=== PATIENT | male | born 1945 | race Caucasian/White ===

== ENCOUNTER 2017-01-29 08:19 | Day surgery (SDC) | payer OTHER, MEDICARE ==
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
[2017-01-29 08:51] VITALS: RESP 16
[2017-01-29] MEDS ORDERED: LR 1,000 ML IV ONE (08:59)
[2017-01-29] MEDS ORDERED: PROPOFOL/EMULSION 500 MG/50 ML BOTTLE IV ONE (09:33)
--- NOTE | 2017-01-29 09:33 | PDGENHP ---
History & Physical Chief Complaint: hx of polyps Relevant Physical Exam: GEN: NAD. Cardiac: RRR. Lungs: CTA B. Abd: Soft, nt, nd
[2017-01-29] MEDS ORDERED: ONDANSETRON 4 MG/2 ML VIAL IVP PRN (09:43)
[2017-01-29] MEDS ORDERED: ACETAMINOPHEN 500 MG TAB PO PRN (09:43)
[2017-01-29] MEDS ORDERED: NALOXONE HCL 0.4 MG/ML INJ IVP PRN (09:43)
--- NOTE | 2017-01-29 09:55 | POSTOPPROG ---
Post Op Note Date of Operation: 01/29/17 Surgeon: Jonatan Vasquez Pre-op Diagnosis: hx of colon polyps Post-op Diagnosis: Diverticulosis Indication: Surveillance of colon polyps Procedure: Colonoscopy Findings: Diverticulosis Inf/Abcess present in the surg proc area at time of surgery?: No
[2017-01-29 10:23] VITALS: TEMP 97.5
--- NOTE | 2017-01-29 10:36 | GPN ---
[f rep st] PROCEDURE NOTE PREPROCEDURE DIAGNOSIS: History of colon polyps. POSTPROCEDURE DIAGNOSIS: Diverticulosis. PROCEDURE: Colonoscopy. MEDICATIONS: Monitored anesthesia care. INDICATIONS: The patient is a 71-year-old gentleman with a history of colon polyps, here for survei llance colonoscopy. The risks and benefits of the procedure discussed with the patient. Consent ob tained. Risks include, but not limited to, bleeding, perforation, and sedation. The patient is ASA class 2. DESCRIPTION OF PROCEDURE: The adult colonoscope was advanced to the terminal ileum, which appears n ormal. The ileocecal valve, appendiceal orifice, cecum, ascending colon, hepatic flexure, transvers e colon, splenic flexure appear normal. There was scattered diverticulosis in the descending colon and sigmoid colon. Retroflexed views in the rectum were normal. IMPRESSION: Mild left-sided diverticulosis. Otherwise normal colonoscopy. RECOMMENDATIONS: 1. Advance diet as tolerated. 2. Discharge patient to home. 3. Repeat colonoscopy in 5 years for surveillance purposes given a personal history of polyps. Thank you for allowing me to participate in the care of patient. Please do not hesitate to call anju butt questions. /[id number]/MODL
[2017-01-29 11:08] VITALS: BP 113/80; PULSE 72; O2SAT 97
--- NOTE | 2017-01-29 20:53 | POSTANESTH ---
Post Anesthetic Evaluation Cardiovascular Status: Normal, Stable, Similar to Pre-Op Cond Respiratory Status: Normal, Stable, Similar to Pre-op Cond. Level of Consciousness/Mental Status: Can Participate in Eval, Alert and Oriented Pain Control: Adequate, Prn Tx Ordered Nausea/Vomiting Control: Adequate, Prn Tx Ordered Complications Possibly Related to Anesthesia: None Noted
== END 2017-01-29 11:19 | disposition home or self-care (01) ==
LOC: FSGY 08:19
PROVIDERS: ATTEND Internal Medicine Gastroenterology
PROC: 0DJD8ZZ Inspection of Lower Intestinal Tract, Via Natural or Artificial Opening Endoscopic (ICD-10-PCS; principal; 2017-01-29 09:30)
DX: Z12.11 Encounter for screening for malignant neoplasm of colon (principal); K57.30 Diverticulosis of large intestine without perforation or abscess without bleeding; Z86.010 Personal history of colon polyps
CPT/HCPCS: J2704

== ENCOUNTER → 2017-10-17 | Outpatient (CLI) | payer OTHER, MEDICARE | LOC: BHFA 14:00 | PROVIDERS: ATTEND Internal Medicine Cardiovascular Disease | DX: I25.10 Atherosclerotic heart disease of native coronary artery without angina pectoris (principal); R06.09 Other forms of dyspnea | CPT/HCPCS: 78452; 93017; A9500 ==